=== PATIENT | male | born 1990 ===

== ENCOUNTER 2022-12-02 02:54 | Emergency (ER) | payer OTHER ==
[2022-12-02] MEDS ORDERED: Iopamidol 755 MG/ML 500 ML Multipack Bottle IVPUSH ONE (03:26)
[2022-12-02 03:42] LABS: A/G RATIO 0.9 (0.9-1.6); ALBUMIN 3.7 g/dL (3.4-5.0); BASOPHILS PERCENT AUTO 0.3 % (0.0-1.5); BILIRUBIN TOTAL 0.6 mg/dL (0.2-1.0); CALCIUM 8.4 mg/dL (8.5-10.1); CARBON DIOXIDE,CO2 31.5 mmol/L (21.0-32.0); CREATININE 1.2 mg/dL (0.8-1.3); EOSINOPHILS ABSOLUTE AUTO 0.2 K/uL (0.0-0.7); EST CRCL DRUG DOSING (CG) 100.85 mL/min; HEMATOCRIT 44.8 % (38.0-50.0); HEMOGLOBIN 15.1 g/dL (13.0-17.0); LYMPHOCYTES ABSOLUTE AUTO 3.5 K/uL (0.6-2.4); MEAN CORPUSCULAR HEMOGLOBIN 30.3 pg (27.0-32.0); MEAN CORPUSCULAR HGB CONC 33.7 g/dL (31.0-37.0); MONOCYTES ABSOLUTE AUTO 0.9 K/uL (0.0-0.8); MONOCYTES PERCENT AUTO 9.8 % (0.0-15.0); NEUTROPHILS ABSOLUTE AUTO 4.9 K/uL (1.4-5.7); NEUTROPHILS PERCENT AUTO 50.9 % (48.0-80.0); NRBC ABSOLUTE 0 K/uL; PLATELET COUNT,PLT 338 K/uL (150-400); POTASSIUM,K 3.6 mmol/L (3.5-5.1); PROTEIN TOTAL,TP 7.7 g/dL (6.4-8.2); RED BLOOD CELL COUNT 4.98 M/uL (4.50-5.90); WHITE BLOOD CELL COUNT,WBC 9.56 K/uL (4.0-11.0)
[2022-12-02] MEDS ORDERED: Lidocaine 1% with EPINEPHrine 1:100,000 20 ML MDV INJECT ONE (03:53)
[2022-12-02] MEDS: Diphtheria,Pertussis(Acell),Tetanus Vaccine 0.5 ML Syringe IM ONE ×2 (04:15→04:32)
[2022-12-02] MEDS ORDERED: Bacitracin Oint 1 GM U/D Packet TOP ONE (04:41)
[2022-12-02] MEDS ORDERED: Bacitracin Oint 28.35 GM Tube TOP STA (04:47)
== END 2022-12-02 05:14 | disposition home or self-care (01) ==
LOC: MW.ED 02:54
DX: S71.112A Laceration without foreign body, left thigh, initial encounter (principal); V03.99XA Pedestrian with other conveyance injured in collision with car, pick-up truck or van, unspecified whether traffic or nontraffic accident, initial encounter
CPT/HCPCS: 12004; 36415; 70450; 71260; 72125; 74177; 80053; 85025; 99284; Q9967; 90715; J3490

== ENCOUNTER 2022-12-03 16:06 | Emergency (ER) | payer OTHER | END 2022-12-03 18:51 | disposition home or self-care (01) | LOC: MW.ED 16:06 | DX: S59.901A Unspecified injury of right elbow, initial encounter (principal); L03.113 Cellulitis of right upper limb; X58.XXXA Exposure to other specified factors, initial encounter | CPT/HCPCS: 99283 ==

== ENCOUNTER 2022-12-21 11:22 | Emergency (ER) | payer OTHER | END 2022-12-21 12:44 | disposition home or self-care (01) | LOC: MW.ED 11:22 | DX: S51.001A Unspecified open wound of right elbow, initial encounter (principal); S71.101A Unspecified open wound, right thigh, initial encounter; L08.9 Local infection of the skin and subcutaneous tissue, unspecified; Y92.410 Unspecified street and highway as the place of occurrence of the external cause; V03.10XA Pedestrian on foot injured in collision with car, pick-up truck or van in traffic accident, initial encounter | CPT/HCPCS: 99283 ==

== ENCOUNTER 2022-12-31 11:58 | Emergency (ER) | payer SELFPAY ==
[2022-12-31] MEDS ORDERED: Doxycycline 100 MG Cap PO ONE (14:35)
== END 2022-12-31 15:02 | disposition home or self-care (01) ==
LOC: MW.ED 11:58
DX: T81.30XA Disruption of wound, unspecified, initial encounter (principal)
CPT/HCPCS: 87070; 87205; 99283; A9270; 87077; 87186

== ENCOUNTER 2023-04-19 12:02 | Emergency (ER) | payer SELFPAY ==
[2023-04-19 13:21] LABS: BILIRUBIN,URINE NEGATIVE (NEGATIVE); COLOR,URINE YELLOW; GLUCOSE,URINE NEGATIVE (NEGATIVE); KETONES,URINE NEGATIVE (NEGATIVE); LEUKOCYTE ESTERASE,URINE NEGATIVE (NEGATIVE); NITRITE,URINE POSITIVE (NEGATIVE); OCCULT BLOOD,URINE TRACE-INTACT (NEGATIVE); PROTEIN,URINE TRACE mg/dL (NEGATIVE)
[2023-04-19 13:24] LABS: APPEARANCE,URINE HAZY
[2023-04-19 13:28] LABS: AMPHETAMINES SCREEN, URINE NEGATIVE (CUTOFF=500); BARBITURATE SCREEN,URINE NEGATIVE (CUTOFF=200); BENZODIAZEPINES SCREEN,URINE NEGATIVE (CUTOFF=150); BUPRENORPHINE SCREEN,URINE NEGATIVE (CUTOFF=10); METHADONE SCREEN, URINE NEGATIVE (CUTOFF=200); METHAMPHETAMINES SCREEN, URINE NEGATIVE (CUTOFF=500); OXYCODONE SCREEN,URINE NEGATIVE (CUT0FF=100); PCP SCREEN,URINE NEGATIVE (CUTOFF=25); THC SCREEN,URINE 20 NG/ML NEGATIVE (CUTOFF=50)
[2023-04-19 13:30] LABS: BACTERIA,URINE 1+ (NEGATIVE); EPITHELIAL CELLS,URINE NOT SEEN (NONE-FEW); WBC,URINE 0-2 (0-5/HPF)
[2023-04-19 13:31] LABS: MUCUS,URINE MODERATE (NONE-MOD)
[2023-04-19] MEDS ORDERED: OLANZapine 5 MG Tab.DIS PO ONE (13:45)
[2023-04-19 14:06] LABS: BASOPHILS ABSOLUTE AUTO 0.02 K/uL (0.00-0.20); BASOPHILS PERCENT AUTO 0.2 % (0.0-1.0); EOSINOPHILS ABSOLUTE AUTO 0.08 K/uL (0.00-0.45); EOSINOPHILS PERCENT AUTO 0.6 % (0.0-6.0); HEMOGLOBIN 13.9 g/dL (14.0-18.0); IMMATURE GRAN ABSOLUTE AUTO 0.04 K/uL (0.00-0.05); IMMATURE GRAN PERCENT AUTO 0.3 % (0.0-0.4); LYMPHOCYTES ABSOLUTE AUTO 1.25 K/uL (1.00-4.80); LYMPHOCYTES PERCENT AUTO 9.7 % (24.0-44.0); MEAN CORPUSCULAR HEMOGLOBIN 31.7 pg (28.0-32.0); MEAN CORPUSCULAR HGB CONC 35.6 g/dL (32.0-36.0); MEAN CORPUSCULAR VOLUME 88.8 fL (83.0-99.0); MEAN PLATELET VOLUME 8.3 fL (9.4-12.4); MONOCYTES ABSOLUTE AUTO 1.15 K/uL (0.00-0.80); MONOCYTES PERCENT AUTO 8.9 % (0.0-8.0); NEUTROPHILS ABSOLUTE AUTO 10.36 K/uL (1.80-7.70); NEUTROPHILS PERCENT AUTO 80.3 % (41.0-71.0); PLATELET COUNT,PLT 220 K/uL (150-400); RED BLOOD CELL COUNT 4.39 M/uL (4.52-5.90)
[2023-04-19 14:12] LABS: INR 0.98 (0.86-1.11); PTT,PARTIAL THROMBOPLSTIN TIME 26.1 SEC (23.9-30.7)
[2023-04-19 14:28] LABS: ACETAMINOPHEN <2.0 ug/mL
[2023-04-19 14:33] LABS: SALICYLATE < 0.2 mg/dL (0.0-20.0)
[2023-04-19 14:37] LABS: ALBUMIN 3.8 g/dL (3.4-5.0); CALCIUM 8.9 mg/dL (8.5-10.1); CARBON DIOXIDE,CO2 26.9 mmol/L (21.0-32.0); EST CRCL DRUG DOSING (CG) 117.63 mL/min; MAGNESIUM 1.6 mg/dL (1.8-2.4); POTASSIUM,K 3.4 mmol/L (3.5-5.1); PROTEIN TOTAL,TP 7.5 g/dL (6.4-8.2); TSH ULTRASENSITIVE 0.37 uIU/mL (0.36-3.74)
[2023-04-19 15:35] LABS: HIV12 AG/AB 4TH GEN W/REFLEX 0.5 INDEX (<1.0)
[2023-04-19] MEDS ORDERED: LORazepam 2 MG/ML SDV IM ONE (19:21)
[2023-04-19] MEDS ORDERED: Albuterol 0.083% 2.5 MG/3 ML Neb Soln NEB ONE (22:34)
[2023-04-20 06:50] LABS: C. TRACHOMATIS BY PCR NOT DETECTED; N. GONORRHOEAE BY PCR NOT DETECTED
== END 2023-04-20 09:45 ==
LOC: MW.ED 12:02
DX: F23 Brief psychotic disorder (principal)
CPT/HCPCS: 36415; 70450; 80053; 80143; 80179; 80305; 80307; 81001; 82140; 83735; 84443; 85025; 85610; 85730; 86592; 87086; 87389; 87491; 87591; 96372; 99285; A9270; J2060